=== PATIENT | female | born 1965 | race American Indian/Alaskan Native ===

== ENCOUNTER 2018-09-20 20:11 | Emergency (ER) | payer OTHER ==
[2018-09-20 20:55] VITALS: BP 129/76
--- NOTE | 2018-09-20 20:55 | Event Note ---
ED Screening Note ED Screening Note: pmh none psh csec hernia rx none no cig/etoh/drugs co room spinning; nandini w turning head to either side; nausea; also when she stands up no cp no sob This initial assessment/diagnostic orders/clinical plan/treatment(s) is/are subject to change based on patients health status, clinical progression and re- assessment by fellow clinical providers in the ED. Further treatment and workup at subsequent clinical providers discretion. Patient/guardian urged not to elope from the ED as their condition may be serious if not clinically assessed and managed. 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
--- NOTE | 2018-09-20 23:19 | Emergency Department Report ---
ED Dizziness HPI - General Chief Complaint: Dizziness Stated Complaint: BPPV SYMPTOMS NV Time Seen by Provider: 09/20/18 20:51 Source: patient Mode of arrival: Ambulatory Limitations: No Limitations - History of Present Illness Initial Comments: 53-year-old female co room spinning; nandini w turning head to either side; nausea; also when she stands up. Patient also complains of a rash on her inner thighs that is not responding to hydrocortisone and nystatin. Patient reports that rash is itchy. Patient does admit to having cold-like symptoms one week ago. Complaint: dizziness Onset/Timin -: days(s) Timing: sudden onset Description: "room spinning" History of Same: No History of Trauma: No Improves With: remaining still Worsens With: position - Related Data Previous Rx's Medication Instructions Recorded Last Taken Type Betamethasone Dipropionate 1 applic TP BID PRN #45 oint...g. 09/20/18 Unknown Rx [Betamethasone Dipropionate 0.05% Oint] Meclizine [Antivert] 25 mg PO TID PRN #30 tablet 09/20/18 Unknown Rx Allergies Allergy/AdvReac Type Severity Reaction Status Date / Time aspirin Allergy Unknown Verified 09/20/18 20:45 meperidine [From Demerol] Allergy Unknown Verified 09/20/18 20:45 ED Review of Systems ROS: Stated complaint: BPPV SYMPTOMS NV Other details as noted in HPI Comment: All other systems reviewed and negative Constitutional: denies: chills, fever Eyes: denies: eye pain, eye discharge, vision change ENT: denies: ear pain, throat pain Respiratory: denies: cough, shortness of breath, wheezing Cardiovascular: denies: chest pain, palpitations Endocrine: no symptoms reported Gastrointestinal: nausea, vomiting. denies: abdominal pain, diarrhea Genitourinary: denies: urgency, dysuria, discharge Musculoskeletal: denies: back pain, joint swelling, arthralgia Skin: rash Neurological: vertigo Psychiatric: denies: anxiety, depression ED Past Medical Hx - Past Medical History Previous Medical History?: No - Surgical History Past Surgical History?: Yes Additional Surgical History: , vaginal hernia with mesh - Social History Smoking Status: Never Smoker Substance Use Type: None - Medications Home Medications: Home Medications Medication Instructions Recorded Confirmed Last Taken Type Betamethasone Dipropionate 1 applic TP BID PRN #45 oint...g. 09/20/18 Unknown Rx [Betamethasone Dipropionate 0.05% Oint] Meclizine [Antivert] 25 mg PO TID PRN #30 tablet 09/20/18 Unknown Rx ED Physical Exam - General Limitations: No Limitations General appearance: alert, in no apparent distress - Head Head exam: Present: atraumatic, normocephalic - Eye Eye exam: Present: normal appearance - ENT ENT exam: Present: mucous membranes moist - Neck Neck exam: Present: normal inspection - Respiratory Respiratory exam: Present: normal lung sounds bilaterally. Absent: respiratory distress - Cardiovascular Cardiovascular Exam: Present: regular rate, normal rhythm. Absent: systolic murmur, diastolic murmur, rubs, gallop - GI/Abdominal GI/Abdominal exam: Present: soft, normal bowel sounds - Extremities Exam Extremities exam: Present: normal inspection - Back Exam Back exam: Present: normal inspection - Neurological Exam Neurological exam: Present: alert, oriented X3 - Expanded Neurological Exam Expanded Patient oriented to: Present: person, place, time Cranial nerves: EOM's Intact: Normal, Gag Reflex: Normal, Tongue Deviation: Normal, Nystagmus: Normal, Facial Sensation: Normal, Facial Palsy with Forehead Movement: Normal, Facial Palsy without Forehead Movement: Normal Cerebellar function: Finger to Nose: Normal, Heel to Cross: Normal, Romberg: Normal Upper motor neuron: David Neglect: Normal, Pronator Drift: Normal, Babinski Sign: Normal, Sensory Extinction: Normal Sensory exam: Upper Extremity Light Touch: Normal, Upper Extremity Pin Prick: Normal, Upper Extremity Temperature: Normal, UE 2 Point Discrimination: Normal, Lower Extremity Light Touch: Normal, Lower Extremity Pin Prick: Normal, Lower Extremity Temperature: Normal, LE 2 Point Discrimination: Normal Motor strength exam: RUE: 4, LUE: 4, RLE: 4, LLE: 4 Best Eye Response ([place]): (4) open spontaneously Best Motor Response ([place]): (6) obeys commands Best Verbal Response ([place]): (5) oriented [place] Total: 15 - Psychiatric Psychiatric exam: Present: normal affect, normal mood - Skin Skin exam: Present: warm, dry, intact, normal color. Absent: rash ED Course Vital Signs 09/20/18 20:51 Temperature 98.2 F Pulse Rate 65 Respiratory 18 Rate Blood Pressure 129/76 O2 Sat by Pulse 100 Oximetry ED Medical Decision Making - Medical Decision Making 53-year-old female comes in for vertigo like symptoms that started yesterday evening. Patient also complains of rash in inner thigh. will be prescribed clomitrzole beclomethasone dipropionate and Antivert. Discussed the patient to follow up with her primary care provider when she returns back to [place]. Critical care attestation.: If time is entered above; I have spent that time in minutes in the direct care of this critically ill patient, excluding procedure time. ED Disposition Clinical Impression: Vertigo, Rash Disposition: - TO HOME OR SELFCARE Is pt being admited?: No Does the pt Need Aspirin: No Condition: Stable Instructions: Vertigo (ED), Contact Dermatitis (ED) Additional Instructions: Take medications as prescribed. Follow-up with your primary care provider in the next 3-5 days if symptoms persist or gets worse. Prescriptions: Meclizine [Antivert] 25 mg PO TID PRN #30 tablet PRN Reason: Vertigo Betamethasone Dipropionate [Betamethasone Dipropionate 0.05% Oint] 1 applic TP BID PRN #45 oint...g. PRN Reason: Rash Referrals: Your,Provider [Other] - 3-5 Days Your, [facility] [Other] - 3-5 Days Forms: Accompanied Note
== END 2018-09-21 00:21 | disposition home or self-care (01) ==
LOC: ED 20:11
DX: R42 Dizziness and giddiness (principal); R21 Rash and other nonspecific skin eruption
CPT/HCPCS: 99282